=== PATIENT | female | born 1970 | race Hispanic/Latino ===

== ENCOUNTER 2016-02-22 19:51 | Emergency (ER) | payer SELFPAY ==
[2016-02-22] MEDS ORDERED: Triple Antibiotic Oint 1 GM Packet ONE (21:26)
[2016-02-22] MEDS ORDERED: Adacel (T-DAP) 0.5 ML VIAL ONE (21:37)
--- NOTE | 2016-02-22 22:10 | ERRECORD ---
[facility] EMERGENCY RECORD HPI LACERATION (21:13 WMEI) CHIEF COMPLAINT: Patient presents for evaluation of laceration to wrist, on the right, 2.6-4.0cm in length, through dermis, Not grossly contaminated, HAPPENED OVER 24 HRS AGO PT CLEANE AND DRESSED. HISTORIAN: History provided by patient, FAMILY CONCERNED THAT LACERATION CAME FROM PT TRYING TO HURT SELF BUT PT DENIES STATES WORKS ON [employer] HAS NUMEROUS CUTS ON EXTREMITIES FROM ACCIDENTS. DENIES ANY SUICIDAL IDEATION PT IS CALM RATIONAL. MECHANISM OF INJURY: Known mechanism, Mechanism of injury: Cut or punctured by, ADITYA WIRE, Occurred at home. LOCATION: Symptoms are localized. QUALITY: Laceration quality straight. TIME COURSE: Sudden onset of symptoms, 1, days ago. ASSOCIATED WITH: No associated symptoms. EXACERBATED BY: Patient's condition exacerbated by nothing. RELIEVED BY: Patient's condition relieved by nothing. ROS (21:16 WMEI) CONSTITUTIONAL: Historian denies fatigue, denies fever. EYES: Historian denies eye pain, denies eye discharge. ENT: Historian denies otalgia, denies rhinorrhea, denies sore throat. CARDIOVASCULAR: Historian denies chest pain, no radiation. RESPIRATORY: Historian denies cough, denies shortness of breath. GI: Historian denies abdominal pain, denies diarrhea, denies nausea. GENITOURINARY FEMALE: Historian denies dysuria, denies urgency. MUSCULOSKELETAL: Historian denies joint stiffness, denies joint swelling. SKIN: Historian reports skin changes, reports skin lesions. LACEERATION R FOREARM. NEUROLOGIC: Historian denies focal weakness, denies headache, denies mental status changes. PSYCHIATRIC: Historian denies alcohol abuse, denies anxiety, denies drug abuse, denies homicidal ideation, denies suicidal ideation. PAST MEDICAL HISTORY (20:24 EMAT) MEDICAL HISTORY: Past medical history includes history of hypertension, Patient is noncompliant. Reviewed 02/22/16. FEMALE SURGICAL HISTORY: Patient has no surgical history. Reviewed 02/22/16. PSYCHIATRIC HISTORY: no history of suicidal ideations, No history of suicide attempts, No history of hallucinations, No history of homicidal ideations, No history of violence towards others, No history of post-traumatic stress disorder, No history of psychosis, pt denies psych history. &a-1R&a+25V*p+0X*v7866F*c202B*c15G*c2P*p-0X&a-25V&a+1R Name: Gustavo Garcia : 1970 F45 MedRec: [id number] AcctNum: [id number] Prepared: Priscilla Feb 22, 2016 22:55 by Interface Page 1 of 3 pMD [facility] EMERGENCY RECORD SOCIAL HISTORY: Patient drinks socially, Patient denies drug use, Patient currently uses tobacco, smokes cigarettes. FAMILY HISTORY: Paternal history of cardiac disease:, Paternal history of diabetes: alzheimers Reviewed 02/22/16. KNOWN ALLERGIES No Known Drug Allergies CURRENT MEDICATIONS (20:19 EMAT) Unknown VITAL SIGNS VITAL SIGNS: BP: 116/95, Pulse: 90, Resp: 16, Temp: 97.7 (Oral), Pain: 0, O2 sat: 96 on Room Air, Time: 02/22/2016 20:12. (20:12 EMAT) BP: 109/82, Pulse: 86, Resp: 18, Temp: 97.6, Pain: 7, O2 sat: 97 on RA, Time: 02/22/2016 21:48. (21:48 AADK) PHYSICAL EXAM (21:18 WMEI) CONSTITUTIONAL: Vital signs reviewed. HEAD: Head exam included findings of head atraumatic. EYES: Conjunctiva normal, Sclera normal. ENT: Ear exam normal, Nose exam normal, Pharynx exam normal. NECK: Neck exam included findings of normal range of motion, Trachea midline, Thyroid normal. RESPIRATORY CHEST: Breath sounds clear, Chest expansion equal. CARDIOVASCULAR: Cardiovascular exam included findings of heart rate regular rate and rhythm, Heart sounds normal. ABDOMEN FEMALE: Abdominal exam included findings of abdomen nontender, Bowel sounds normal. UPPER EXTREMITY: Upper extremity exam included findings of inspection normal, Range of motion normal, Motor strength normal. LOWER EXTREMITY: Lower extremity exam included findings of inspection normal, Range of motion normal, Motor strength normal. NEURO: [place] coma scale 15, Neuro exam findings include patient oriented to person, place and time, Speech normal, Gait normal. SKIN: Skin exam included findings of skin warm, dry, and normal in color, 4 CM LINEAR SUPERFICIAL LACERATION R VOLAR WRIST GOOD MOVEMENT OF WRIST/FINGERS DISTALLY WITH NO NUMBNESS. LYMPHATIC: Lymphatic exam normal. PSYCHIATRIC: Psychiatric exam included findings of patient oriented to person place and time, Normal affect, Judgment normal, Insight normal. MEDICATION ADMINISTRATION SUMMARY Drug Name: *Adacel(Tdap Adolesn/Adult)(PF), Dose Ordered: 0.5 mL, Route: Intramuscular, Status: Given, Time: 21:40 02/22/2016, Drug Name: Neosporin (kwt-dkp-quclw) topical ointme, Dose Ordered: 3.5 mg, Route: Topical, Status: Given, Time: 21:28 02/22/2016, *Additional information available in notes, Detailed record available &a-1R&a+25V*p+0X*v4244J*c202B*c15G*c2P*p-0X&a-25V&a+1R Name: Gustavo Garcia : 1970 3 MedRec: [id number] AcctNum: [id number] Prepared: FriFeb 22, 2016 22:55 by Interface Page 2 of 3 pMD [facility] EMERGENCY RECORD in Medication Service section. DOCTOR NOTES (22:50 WMEI) TEXT: laceration greater than 24 hrs no repair elected dress daily. PROBLEM LIST No recorded problems DIAGNOSIS (21:21 WMEI) FINAL: PRIMARY: LACERATION. PRESCRIPTION No recorded prescriptions DISPOSITION PATIENT: Disposition Type: Discharge, Disposition: *Discharge Home. (21:21 WMEI) Patient left the department. (21:55 AADK) Butler: AADK=MINDA Abbott, Xiomara EMAT=MINDA De La Cruz Eric WMEI=DO La William &a-1R&a+25V*p+0X*c6158N*c202B*c15G*c2P*p-0X&a-25V&a+1R Name: Gustavo Garcia : 1970 F45 MedRec: [id number] AcctNum: [id number] Prepared: FriFeb 22, 2016 22:55 by Interface Page 3 of 3 pMD MTDD
--- NOTE | 2016-02-22 22:15 | PICIS ---
[facility] EMERGENCY RECORD TRIAGE (FriFeb 22, 2016 20:16 EMAT) TRIAGE NOTES: stated she cut it on barbed wire. (FriFeb 22, 2016 20:16 EMAT) PATIENT: NAME: Gustavo Garcia, AGE: 45, GENDER: female, : Fri1970, TIME OF GREET: FriFeb 22, 2016 19:52, PREFERRED LANGUAGE: [place]ib[place]ian, ETHNICITY: or , ECODE BILLING MAP: [facility], SSN: [id number], Zip Code: [address], KG WEIGHT: 83.91 (est.), , , PERSON ID: [id number], PAYMENT: [employer] Self Pay, PCP: MD Gregory Kia. (FriFeb 22, 2016 20:16 EMAT) PHONE: . (21:38) COMPLAINT: LACERATION TO RIGHT WRIST. (FriFeb 22, 2016 20:16 EMAT) ADMISSION: URGENCY: 3 Urgent, ADMISSION SOURCE: Home, TRANSPORT: CAR, BED: TRIAGE. (FriFeb 22, 2016 20:16 EMAT) ASSESSMENT: Assessment: laceration to right wrist. pt states she cut it on barbed wire yesterday, Symptoms began 02/21/2016 09:31, Location: right wrist. (20:24 EMAT) PAIN: Pain is intermittent, Aggravating factors:, Pain exacerbated by movement, No relieving factors. (20:24 EMAT) SIRS SCORING: Heart Rate 55-109 (0), Temp range 96.8-101.1 (0), respiratory rate 12-24 (0), Mental Status altered: no (0), Infection or Suspected Infection: No. (20:24 EMAT) LMP: Last menstrual period: 12/15/2015. (20:24 EMAT) PROVIDERS: TRIAGE NURSE: Tuan De La Cruz RN. ([facility] Feb 22, 2016 20:16 EMAT) VITAL SIGNS: BP 116/95, Pulse 90, Resp 16, Temp 97.7, (Oral), Pain 0, O2 Sat 96, on Room Air, Time 02/22/2016 20:12. (20:12 EMAT) PREVIOUS VISIT ALLERGIES: No Known Drug Allergies. (FriFeb 22, 2016 20:16 EMAT) No Known Drug Allergies. (20:24 EMAT) KNOWN ALLERGIES No Known Drug Allergies CURRENT MEDICATIONS (20:19 EMAT) Unknown VITAL SIGNS VITAL SIGNS: BP: 116/95, Pulse: 90, Resp: 16, Temp: 97.7 (Oral), Pain: 0, O2 sat: 96 on Room Air, Time: 02/22/2016 20:12. (20:12 EMAT) BP: 109/82, Pulse: 86, Resp: 18, Temp: 97.6, Pain: 7, O2 sat: 97 on RA, Time: 02/22/2016 21:48. (21:48 AADK) NURSING ASSESSMENT: EXTREMITY UPPER (20:30 EMAT) CONSTITUTIONAL: Patient arrives ambulatory, Gait steady, History obtained from patient, Patient appears comfortable, Patient cooperative, Patient alert, Oriented to person, place and time, Skin warm, Skin dry, Skin normal in color, Mucous membranes pink, Mucous &a-1R&a+25V*p+0X*b8292M*c202B*c15G*c2P*p-0X&a-25V&a+1R Name: Gustavo Garcia : 1970 F45 MedRec: [id number] AcctNum: [id number] Prepared: Priscilla Feb 22, 2016 23:01 by Interface Page 1 of 7 pMD [facility] EMERGENCY RECORD membranes moist, Patient is well-groomed, Patient complains of laceration to right wrist. PAIN: dull pain, to the right forearm, on a scale 0-10 patient rates pain as 3, Pain exacerbated by, movement, Nothing has been tried to alleviate the pain. LEFT UPPER EXTREMITY: Left upper extremity assessment findings include capillary refill less than 2 seconds, Skin color normal to hand, Skin temperature to hand warm, Distal sensation intact, Muscle tone normal, muscle strength 5, no edema present, radial pulse is +3. RIGHT UPPER EXTREMITY: Right upper extremity assessment findings include capillary refill less than 2 seconds, Skin color normal to hand, Skin temperature to hand warm, Distal sensation intact, Muscle tone normal, muscle strength 5, no edema present, radial pulse is +3, Inspection findings include laceration, to distal forearm near wrist, length (cm) 4-5 cm, bleeding controlled. SAFETY: Side rails up, Cart/Stretcher in lowest position, Family at bedside, Call light within reach, Hospital ID band on. NURSING ASSESSMENT: PSYCH/SOCIAL (20:33 EMAT) CONSTITUTIONAL: Patient arrives ambulatory, Gait steady, History obtained from patient, Patient appears comfortable, Patient cooperative, Patient alert, Oriented to person, place and time, Skin warm, Skin dry, Skin normal in color, Mucous membranes pink, Mucous membranes moist, Patient is well-groomed, Patient complains of laceration to right wrist, pt brought by Samuel MARTE to ER. Stated that she voluntarily requested to go to ER. Officer stated that family is concerned that she is lying about laceration to right wrist. Through the officer--Family states that pt drinks heavily and has cut wrists before. laceration is completely straight with multiple layers involved. no active bleeding noted. pt stated she cut it on barbed wire yesterday morning at work. pt was asked multiple times if she cut herself on purpose-- she denied each time. when asked why she didn't get it treated she stated "I didn't want to bother anyone." incidentally laceration is to right wrist area. pt was asked her dominant hand. She readily stated her "left.". PSYCH/SOCIAL: Psychiatric/social assessment findings include affect normal, no complaint of visual hallucinations, no complaint of auditory hallucinations, no complaint of tactile hallucinations, Suicidal ideations present, without plan, unknown/unsure. family concerned. pt denies any suicidal ideation, no homicidal ideations, no reported overdose. SUICIDE RISK ASSESSMENT TOOL: Suicide Risk Assessment findings: Mental State (Low risk):, no psychotic symptoms, Suicide Attempt or Suicidal Thoughts (Low risk):, pt denies but does have laceration to right arm, Substance Disorder (Moderate risk):, risk of substance intoxication, abuse or dependence, Corroborative History (Moderate risk):, some doubts to plausibility of person's account of events, &a-1R&a+25V*p+0X*v6554B*c202B*c15G*c2P*p-0X&a-25V&a+1R Name: Gustavo Garcia : 1970 F45 MedRec: [id number] AcctNum: [id number] Prepared: Priscilla Feb 22, 2016 23:01 by Interface Page 2 of 7 pMD [facility] EMERGENCY RECORD Strengths and Support (Moderate risk):, available but unwilling or unable to help consistently, Reflective Practice (High risk):, low assessment confidence, high changeability, no rapport established with patient, Suicide Risk: Moderate:, suicide precautions initiated, This person's risk level is highly changeable, There are factors that indicate a level of uncertainty in this risk assessment, indicating a low assessment confidence. SAFETY: Side rails up, Cart/Stretcher in lowest position, Family at bedside, Call light within reach, Hospital ID band on, Suicide precautions maintained, all sharps removed, equipment removed, cabinets locked. NURSING PROCEDURE: DISCHARGE NOTE (21:48 AADK) DISCHARGE: Patient discharged to home, ambulating without assistance, Other, mode of transportation: PT STATES SHE WILL BE WALKING, unaccompanied, Summary of Care printed/ provided, Patient requested and was provided an electronic copy of Discharge Instructions, Transition record given to patient, Discharge instructions given to patient, Simple or moderate discharge teaching performed, Above person(s) verbalized understanding of discharge instructions and follow-up care. BELONGINGS: Belongings remain with patient, Valuables remain with patient. NOTES: Notes: PT STATES LAC IS HURTING 7/10 AT THIS TIME. ADVISED SHE CAN TAKE TYLENOL OR IBUPROFEN FOR THE PAIN. BANDAID TO INNER RIGHT WRIST REMAINS CDI. NO SUICIDAL IDEATIONS OR THOUGHTS EXPRESSED TO THIS NURSE PRIOR TO DISCHARGE. VITAL SIGNS: BP: 109, / 82, Pulse: 86, Resp: 18, Temp: 97.6, Pain: 7, O2 sat: 97, on: RA, Time: 2145. NURSING PROCEDURE: NURSE NOTES (21:40 AADK) NURSES NOTES: Notes: MINDA GONZALEZ NOTIFIED S.O. THAT PT IS BEING DISCHARGED, DISPATCH NOTIFIED OFFICER AND SAID IT WAS OK TO DISCHARGE PT HOME. NURSING PROCEDURE: WOUND CARE (21:28 AADK) PATIENT IDENTIFIER: Patient actively involved in identification process, Patient's identity verified by patient stating name, Patient's identity verified by patient stating date. WOUND CARE: Wound care indicated to promote healing, Wound site: RIGHT INNER WRIST, Wound cleansed with soap and water, by PATIENT, Last tetanus shot received greater than 10 years ago, Notes: NOTIFIED DR LA OF TETANUS STATUS. FOLLOW-UP: After procedure, simple dressing applied, LARGE BANDAID. MEDICATION ADMINISTRATION SUMMARY &a-1R&a+25V*p+0X*h0607Q*c202B*c15G*c2P*p-0X&a-25V&a+1R Name: Gustavo Garcia : 1970 F45 MedRec: [id number] AcctNum: [id number] Prepared: Priscilla Feb 22, 2016 23:01 by Interface Page 3 of 7 pMD [facility] EMERGENCY RECORD Drug Name: *Adacel(Tdap Adolesn/Adult)(PF), Dose Ordered: 0.5 mL, Route: Intramuscular, Status: Given, Time: 21:40 02/22/2016, Drug Name: Neosporin (iut-mfm-pgwez) topical ointme, Dose Ordered: 3.5 mg, Route: Topical, Status: Given, Time: 21:28 02/22/2016, *Additional information available in notes, Detailed record available in Medication Service section. MEDICATION SERVICE Adacel(Tdap Adolesn/Adult)(PF): Order: Adacel(Tdap Adolesn/Adult)(PF) (diphth,pertuss(acell),tet vac/preservative free) - Dose: 0.5 mL : Intramuscular Schedule: Now Notes: Read back and verified, Verbal Order Ordered by: Melvin La DO Entered by: Xiomara Abbott RN [facility] Feb 22, 2016 21:35 , Acknowledged by: Xiomara Abbott RN [facility] Feb 22, 2016 21:35 Documented as given by: Xiomara Abbott RN [facility] Feb 22, 2016 21:40 Patient, Medication, Dose, Route and Time verified prior to administration. IM immunization, Amount given: 0.5 ml, Medication administered to right deltoid, Vaccination information sheet given to patient, date of publication: 04/05/2014, name of publication: [employer], graphic editor: SANOFI PASTEUR, lot number: [id number], expiration: , Correct patient, time, route, dose and medication confirmed prior to administration, Patient advised of actions and side-effects prior to administration, Allergies confirmed and medications reviewed prior to administration, Patient in position of comfort, Side rails up, Cart in lowest position, Call light in reach. : Follow Up : Response assessment performed, No signs or symptoms of allergic reaction noted. (21:48 AADK) Neosporin (dhr-waa-qufat) topical ointment packet: Order: Neosporin (rwc-vsa-sqfqz) topical ointment packet (neomycin sulfate/bacitracin zinc/polymyxin B) - Dose: 3.5 mg : Topical Schedule: Now Ordered by: Melvin La DO Entered by: Melvin La DO [facility] Feb 22, 2016 21:23 , Acknowledged by: Xiomara Abbott RN [facility] Feb 22, 2016 21:25 Documented as given by: Xiomara Abbott RN [facility] Feb 22, 2016 21:28 Patient, Medication, Dose, Route and Time verified prior to administration. Medication applied transdermally topically, Amount given: 1 packet, Skin cleansed prior to administration, Correct patient, time, route, dose and medication confirmed prior to administration, Patient advised of actions and side-effects prior to administration, Allergies confirmed and medications reviewed prior to administration, Patient in position of comfort, Side rails up, Cart in lowest position, Call light in reach. : Follow Up : Response assessment performed, No signs or &a-1R&a+25V*p+0X*e6425Y*c202B*c15G*c2P*p-0X&a-25V&a+1R Name: Gustavo Garcia : 1970 F45 MedRec: [id number] AcctNum: [id number] Prepared: [facility] Feb 22, 2016 23:01 by Interface Page 4 of 7 pMD [facility] EMERGENCY RECORD symptoms of allergic reaction noted. (21:48 AADK) HPI LACERATION (21:13 WMEI) CHIEF COMPLAINT: Patient presents for evaluation of laceration to wrist, on the right, 2.6-4.0cm in length, through dermis, Not grossly contaminated, HAPPENED OVER 24 HRS AGO PT CLEANE AND DRESSED. HISTORIAN: History provided by patient, FAMILY CONCERNED THAT LACERATION CAME FROM PT TRYING TO HURT SELF BUT PT DENIES STATES WORKS ON [employer] HAS NUMEROUS CUTS ON EXTREMITIES FROM ACCIDENTS. DENIES ANY SUICIDAL IDEATION PT IS CALM RATIONAL. MECHANISM OF INJURY: Known mechanism, Mechanism of injury: Cut or punctured by, [employer]A WIRE, Occurred at home. LOCATION: Symptoms are localized. QUALITY: Laceration quality straight. TIME COURSE: Sudden onset of symptoms, 1, days ago. ASSOCIATED WITH: No associated symptoms. EXACERBATED BY: Patient's condition exacerbated by nothing. RELIEVED BY: Patient's condition relieved by nothing. ROS (21:16 WMEI) CONSTITUTIONAL: Historian denies fatigue, denies fever. EYES: Historian denies eye pain, denies eye discharge. ENT: Historian denies otalgia, denies rhinorrhea, denies sore throat. CARDIOVASCULAR: Historian denies chest pain, no radiation. RESPIRATORY: Historian denies cough, denies shortness of breath. GI: Historian denies abdominal pain, denies diarrhea, denies nausea. GENITOURINARY FEMALE: Historian denies dysuria, denies urgency. MUSCULOSKELETAL: Historian denies joint stiffness, denies joint swelling. SKIN: Historian reports skin changes, reports skin lesions. LACEERATION R FOREARM. NEUROLOGIC: Historian denies focal weakness, denies headache, denies mental status changes. PSYCHIATRIC: Historian denies alcohol abuse, denies anxiety, denies drug abuse, denies homicidal ideation, denies suicidal ideation. PAST MEDICAL HISTORY (20:24 EMAT) MEDICAL HISTORY: Past medical history includes history of hypertension, Patient is noncompliant. Reviewed 02/22/16. FEMALE SURGICAL HISTORY: Patient has no surgical history. Reviewed 02/22/16. PSYCHIATRIC HISTORY: no history of suicidal ideations, No history of suicide attempts, No history of hallucinations, No history of homicidal ideations, No history of violence towards others, No &a-1R&a+25V*p+0X*i1301U*c202B*c15G*c2P*p-0X&a-25V&a+1R Name: Gustavo Garcia : 1970 F45 MedRec: [id number] AcctNum: [id number] Prepared: Priscilla Feb 22, 2016 23:01 by Interface Page 5 of 7 pMD [facility] EMERGENCY RECORD history of post-traumatic stress disorder, No history of psychosis, pt denies psych history. SOCIAL HISTORY: Patient drinks socially, Patient denies drug use, Patient currently uses tobacco, smokes cigarettes. FAMILY HISTORY: Paternal history of cardiac disease:, Paternal history of diabetes: alzheimers Reviewed 02/22/16. PHYSICAL EXAM (21:18 WMEI) CONSTITUTIONAL: Vital signs reviewed. HEAD: Head exam included findings of head atraumatic. EYES: Conjunctiva normal, Sclera normal. ENT: Ear exam normal, Nose exam normal, Pharynx exam normal. NECK: Neck exam included findings of normal range of motion, Trachea midline, Thyroid normal. RESPIRATORY CHEST: Breath sounds clear, Chest expansion equal. CARDIOVASCULAR: Cardiovascular exam included findings of heart rate regular rate and rhythm, Heart sounds normal. ABDOMEN FEMALE: Abdominal exam included findings of abdomen nontender, Bowel sounds normal. UPPER EXTREMITY: Upper extremity exam included findings of inspection normal, Range of motion normal, Motor strength normal. LOWER EXTREMITY: Lower extremity exam included findings of inspection normal, Range of motion normal, Motor strength normal. NEURO: [place] coma scale 15, Neuro exam findings include patient oriented to person, place and time, Speech normal, Gait normal. SKIN: Skin exam included findings of skin warm, dry, and normal in color, 4 CM LINEAR SUPERFICIAL LACERATION R VOLAR WRIST GOOD MOVEMENT OF WRIST/FINGERS DISTALLY WITH NO NUMBNESS. LYMPHATIC: Lymphatic exam normal. PSYCHIATRIC: Psychiatric exam included findings of patient oriented to person place and time, Normal affect, Judgment normal, Insight normal. EVENTS TRANSFER: Triage to Emergency Triage. (FriFeb 22, 2016 20:16 EMAT) Emergency Triage to Emergency Room -04. (20:25 EMAT) Removed from Emergency Emergency Room -04. (21:55 AADK) DOCTOR NOTES (22:50 WMEI) TEXT: laceration greater than 24 hrs no repair elected dress daily. PROBLEM LIST No recorded problems DIAGNOSIS (21:21 WMEI) FINAL: PRIMARY: LACERATION. DISPOSITION &a-1R&a+25V*p+0X*c0281K*c202B*c15G*c2P*p-0X&a-25V&a+1R Name: Gustavo Garcia : 1970 F45 MedRec: [id number] AcctNum: [id number] Prepared: Priscilla Feb 22, 2016 23:01 by Interface Page 6 of 7 pMD [facility] EMERGENCY RECORD PATIENT: Disposition Type: Discharge, Disposition: *Discharge Home. (21:21 WMEI) Patient left the department. (21:55 AADK) INSTRUCTION (21:21 WMEI) DISCHARGE: EXTREMITY LACERATION. FOLLOWUP: MD Colt, [place], [facility], [facility] , [facility] [address], [phone]. SPECIAL: Follow-up with your primary physician as needed. PRESCRIPTION No recorded prescriptions IMAGING TETANUS CONSENT: Image captured from scanner. (21:42 AADK) *DISCHARGE INSTRUCTIONS RECEIPT: Image captured from scanner. (21:49 AADK) *SUPPLY CHARGE SHEET: Image captured from scanner. (21:49 AADK) ADMIN DIGITAL SIGNATURE: DO La William. (22:49 WMEI) DO La William. (22:51 WMEI) Butler: AADK=MINDA Abbott, Xiomara EMAT=MINDA De La Cruz, Tuan WMEI=DO La William &a-1R&a+25V*p+0X*r8451C*c202B*c15G*c2P*p-0X&a-25V&a+1R Name: Gustavo Garcia : 1970 F45 MedRec: [id number] AcctNum: [id number] Prepared: Priscilla Feb 22, 2016 23:01 by Interface Page 7 of 7 pMD MTDD
== END 2016-02-22 21:48 | disposition home or self-care (01) ==
LOC: BURERS 19:51
DX: S61.511A Laceration without foreign body of right wrist, initial encounter (principal); I10 Essential (primary) hypertension; Z72.0 Tobacco use; W45.8XXA Other foreign body or object entering through skin, initial encounter
CPT/HCPCS: 90471; 90715

== ENCOUNTER 2017-03-21 20:53 | Emergency (ER) | payer SELFPAY ==
[2017-03-21 21:10] LABS: Bilirubin Negative (Negative); Blood, Urine Negative (Negative); Clarity Slightly Cloudy (Clear); Glucose, Urine (Dipstick) Negative (Negative); Leukocyte Negative (Negative); Nitrite Negative (Negative); Protein, Urine (Dipstick) Negative (Neg-Trace); Urobilinogen 0.2 mg/dL (0.2-1.0); pH, Urine 5.5 (5.0-9.0)
[2017-03-21 21:12] LABS: Specific Gravity, Urine 1.002 (1.002-1.036)
[2017-03-21] MEDS ORDERED: Orphenadrine Citrate 60 MG/2 ML VIAL ONE (21:17)
[2017-03-21] MEDS ORDERED: Ketorolac Tromethamine 30 MG/ML VIAL ONE (21:17)
[2017-03-21 21:30] LABS: Pregnancy Test - Urine (BHCG) Negative (Negative); Pregu Control Background? CLEAR/WHITE (CLR/WHITE); Pregu Control Bar Appear? YES (CONTROL BAR); Specific Gravity 1.002 (1.002-1.036)
--- NOTE | 2017-03-22 07:46 | RAD ---
LUMBAR SPINE 3 VIEWS: Date: 03/21/17 No fracture, dislocation, or disc space narrowing seen. A few small anterior osteophytes are evident. The disc spaces are normal in height. SI joints are symmetrical. IMPRESSION: No acute findings. POS: HOME
== END 2017-03-21 22:07 | disposition home or self-care (01) ==
LOC: BURERS 20:53
DX: M54.5 Low back pain (principal); I10 Essential (primary) hypertension; F17.210 Nicotine dependence, cigarettes, uncomplicated
CPT/HCPCS: 72100; 81003; 81025; 96372; J1885; J2360

== ENCOUNTER 2021-08-17 17:40 | Emergency (ER) | payer SELFPAY ==
[2021-08-17 19:09] LABS: #Basophils 0.1 thou/uL (0.0-0.2); #Eosinphils 0.1 thou/uL (0.0-0.7); #Lymphocytes 2.7 thou/uL (1.20-3.40); #Monocytes 0.5 thou/uL (0.11-0.59); #Neutrophils 2.5 thou/uL (1.40-6.50); %Basophils 2.2 % (0.0-1.0); %Eosinophils 1.6 % (0.0-10.0); %Lymphocytes 45.5 % (21.0-51.0); %Monocytes 8.1 % (0.0-10.0); %Neutrophils 42.7 % (42.0-75.0); Hemoglobin 17.5 g/dL (12.0-16.0); Mean Corpuscular HGB CONC 34.6 g/dL (32.0-36.0); Mean Corpuscular Hemoglobin 35.2 pg (27.0-31.0); Mean Platelet Volume 7.8 fL (7.4-10.4); Platelet Count 158 thou/uL (130-400); RBC Distribution Width 11.1 % (11.5-14.5); Red Blood Cell (RBC) Count 4.97 mill/uL (4.20-5.40)
[2021-08-17 19:14] LABS: ALT (SGPT) 39 U/L (8-55); AST (SGOT) 97 U/L (5-34); Alkaline Phosphatase 83 U/L (40-110); Anion Gap 16 mmol/L (10-20); BUN (Urea Nitrogen) 4 mg/dL (7.0-18.7); Bilirubin, Total 0.5 mg/dL (0.2-1.2); Calc. Creatinine Clearance 0 mL/min (70-130); Calcium 8.5 mg/dL (7.8-10.44); Carbon Dioxide 23 mmol/L (22-29); Chloride 99 mmol/L (98-107); Estimated GFR 88; Globulin 4.5 g/dL (2.4-3.5); Glucose 238 mg/dL (70-105); Magnesium 1.8 mg/dL (1.6-2.6); Protein, Total 8.5 g/dL (6.0-8.3); Sodium 134 mmol/L (136-145)
[2021-08-17] MEDS ORDERED: diphenhydrAMINE 12.5 MG/5 ML UDCUP ONE (20:14)
[2021-08-17] MEDS ORDERED: Metoclopramide HCl 10 MG/2 ML VIAL ONE (20:14)
[2021-08-17] MEDS ORDERED: diphenhydrAMINE 50 MG/ML VIAL ONE (20:16)
[2021-08-17 20:34] LABS: MDiff Complete? YES; Macrocytosis SLIGHT = 6-15 cells (100X) (0-5/hpf)
== END 2021-08-17 21:11 | disposition home or self-care (01) ==
LOC: BURERS 17:40
DX: R51.9 Headache, unspecified (principal); R73.9 Hyperglycemia, unspecified; I10 Essential (primary) hypertension; F17.210 Nicotine dependence, cigarettes, uncomplicated
CPT/HCPCS: 70450; 71045; 80053; 83735; 84484; 85025; 93005; 96374; 96375; J1200; J2765; Q0163